=== PATIENT | male | born 1975 | race Caucasian/White ===

== ENCOUNTER 2017-08-12 05:30 | Day surgery (SDC) | payer BC, OTHER, SELFPAY ==
[~2017-08-12] VITALS: Ht 172.7 cm; Wt 81.0 kg
[2017-08-12] MEDS ORDERED: LACTATED RINGERS 1,000 ML IV SCH ×2 (06:02→06:30)
[2017-08-12 06:04] VITALS: BP 118/75
[2017-08-12] MEDS ORDERED: MULT-208 PO (06:15)
[2017-08-12] MEDS ORDERED: LEVO137T3 PO (06:15)
[2017-08-12] MEDS ORDERED: MIDAZOLAM 1 MG/ML, 2ML ONE (06:20)
[2017-08-12] MEDS ORDERED: FENTANYL PF 100 MCG/2ML ONE (06:20)
[2017-08-12] MEDS ORDERED: HYDROmorphone 1 MG/ML, 1ML ONE ×3 (06:20→08:30)
[2017-08-12] MEDS ORDERED: LIDOCAINE 1%, 2ML SQ PRN (06:30)
[2017-08-12] MEDS ORDERED: EPINEPHRINE 1 MG/ML, 1ML ONE (06:44)
[2017-08-12] MEDS ORDERED: BUPIVACAINE/PF 0.5% ONE (06:44)
[2017-08-12] MEDS ORDERED: ONDANSETRON 2MG/ML, 2ML ONE (06:57)
[2017-08-12] MEDS ORDERED: DEXAMETHASONE 4 MG/ML, 1ML ONE (06:57)
[2017-08-12] MEDS ORDERED: SUCCINYLCHOLINE 20 MG/ML, 10ML ONE (06:57)
[2017-08-12] MEDS ORDERED: CEFAZOLIN 1,000 MG ONE (06:57)
[2017-08-12] MEDS ORDERED: PROPOFOL 10 MG/ML, 20ML ONE (06:57)
[2017-08-12] MEDS ORDERED: ONDANSETRON 2MG/ML, 2ML IVPush PRN (07:00)
[2017-08-12] MEDS ORDERED: HYDROcodone/APAP 7.5-325MG/15ML UDC PO PRN (07:00)
[2017-08-12] MEDS ORDERED: OXYcodone 5 MG/5 ML ORAL.SOL UDC PO PRN (07:00)
[2017-08-12] MEDS ORDERED: FENTANYL PF 100 MCG/2ML IV PRN (07:00)
[2017-08-12] MEDS ORDERED: ACETAMINOPHEN 325 MG TABLET PO PRN (07:00)
[2017-08-12] MEDS ORDERED: ACETAMINOPHEN 650 MG/20.3 ML UDC ONE (08:12)
[2017-08-12] MEDS ORDERED: OXYcodone 5 MG/5 ML ORAL.SOL UDC ONE (08:13)
[2017-08-12] MEDS: HYDROmorphone 1 MG/ML, 1ML IV PRN ×3 (08:15→08:33)
[2017-08-12] MEDS ORDERED: DIPHENHYDRAMINE 50 MG/ML, 1ML ONE (08:37)
[2017-08-12] MEDS ORDERED: BUPIVACAINE/PF 0.25% ONE (08:48)
[2017-08-12] MEDS ORDERED: DIPHENHYDRAMINE 50 MG/ML, 1ML IVPush PRN (09:00)
== END 2017-08-12 11:20 | disposition home or self-care (01) ==
LOC: OUT 05:30
PROVIDERS: ATTEND Orthopaedic Surgery
DX: S46.111A Strain of muscle, fascia and tendon of long head of biceps, right arm, initial encounter (principal); X50.0XXA Overexertion from strenuous movement or load, initial encounter; Y93.89 Activity, other specified; Y92.89 Other specified places as the place of occurrence of the external cause; Y99.8 Other external cause status; E03.9 Hypothyroidism, unspecified
CPT/HCPCS: 24341; 73070; 76000; C1713; J0171; J0330; J0690; J1100; J1170; J1200; J2250; J2405; J2704; J3010; J3490; J7120